=== PATIENT | male | born 1995 | race Two or more races ===

== ENCOUNTER 2017-07-06 14:20 | Emergency (ER) | payer OTHER ==
[2017-07-06 14:42] VITALS: BP 148/84
--- NOTE | 2017-07-06 15:01 | ED Physician Documentation ---
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 denies: Sinus pressure / pain Throat: reports: Sore throat Respiratory: denies: Dyspnea, Cough PD PAST MEDICAL HISTORY - Present Medications Home Medications: Ambulatory Orders Medication Instructions Recorded Confirmed Amoxicillin 500 mg PO TID #30 capsule 07/06/17 - Allergies Allergies/Adverse Reactions: Allergies Allergy/AdvReac Type Severity Reaction Status Date / Time No Known Drug Allergies Allergy Verified 07/06/17 15:04 PD ED PE NORMAL - Vitals Vital signs reviewed: Yes - General General: Alert and oriented X 3, No acute distress - HEENT HEENT: PERRL, EOMI, Other (Tonsils are swollen and inflamed but no exudates, he does have some palatal petechia, he does have right otitis media, left TM is normal. No cervical adenopathy.) - Neck Neck: Supple, no meningeal sign, No bony TTP - Cardiac Cardiac: RRR, No murmur - Respiratory Respiratory: No respiratory distress, Clear bilaterally - Abdomen Abdomen: Non tender - Derm Derm: No rash - Neuro Neuro: Alert and oriented X 3, Normal speech - Psych Psych: Normal mood, Normal affect Results - Vitals Vitals: Vital Signs - 24 hr 07/06/17 14:40 Temperature 36.5 C Heart Rate 77 Respiratory 16 Rate Blood Pressure 148/84 H O2 Saturation 99 Oxygen O2 Source Room air - Labs Labs: Laboratory Tests 07/06/17 15:01 Group A Strep Rapid Negative Departure - Departure Disposition: Home, Self Care Clinical Impression: Right otitis media with effusion Condition: Good Record reviewed to determine appropriate education?: Yes Instructions: ED Otitis Media Acute Adult Prescriptions: Amoxicillin 500 mg PO TID #30 capsule Comments: Your strep test initially is negative, we will also perform a throat culture. Take the antibiotics until done. Wash her hands well and do not kiss your child for a few days until better. Your blood pressure was elevated today on check into the emergency department. This does not mean that you have hypertension, it is a common phenomenon to come to the emergency department and have elevated blood pressure. I recommend that she see your primary care physician within the week to have it rechecked when you are feeling better.
[2017-07-06 15:23] LABS: RAPID STREP SCREEN REAGENT QC YELLOW (YELLOW)
== END 2017-07-06 15:30 | disposition home or self-care (01) ==
LOC: ED 14:20
DX: H66.41 Suppurative otitis media, unspecified, right ear (principal); R03.0 Elevated blood-pressure reading, without diagnosis of hypertension
CPT/HCPCS: 87070; 87430; 99282; 99283

== ENCOUNTER 2018-12-26 05:52 | Emergency (ER) | payer OTHER ==
[2018-12-26 06:01] VITALS: BP 146/82
--- NOTE | 2018-12-26 07:06 | ED Physician Documentation ---
History of Present Illness - Stated complaint Stated Complaint: THROAT PX - Chief complaint Chief Complaint: Heent - History obtained from History obtained from: Patient - History of Present Illness Pain level max: 8 - Additonal information Additional information: Patient is a previously healthy 23-year-old male with approximately 24 hours of bilateral ear pressure and pain without drainage, as well is diffuse sore throat that is causing difficulty swallowing even liquids. Patient believes he may have had a fever, but did not take his temperature. Patient last used ibuprofen last evening with minimal relief. Patient otherwise denies nasal congestion, nasal drainage, vomiting, abdominal pain, cough, difficulty breathing. No improvements or worsening of symptoms with medications or other interventions. Review of Systems Constitutional: denies: Fever Ears: reports: Ear pain. denies: Drainage/discharge PD PAST MEDICAL HISTORY - Past Medical History Past Medical History: No Cardiovascular: None Respiratory: None Neuro: None Endocrine/Autoimmune: None GI: None : None HEENT: None Psych: None Musculoskeletal: None Derm: None - Past Surgical History Past Surgical History: No - Present Medications Home Medications: Ambulatory Orders Medication Instructions Recorded Confirmed Amoxicillin 500 mg PO TID #30 capsule 07/06/17 Penicillin V Potassium 500 mg PO Q6HR #40 tablet 12/26/18 - Allergies Allergies/Adverse Reactions: Allergies Allergy/AdvReac Type Severity Reaction Status Date / Time No Known Drug Allergies Allergy Verified 12/26/18 06:01 - Social History Does the pt smoke?: No Smoking Status: Never smoker Does the pt drink ETOH?: No Does the pt have substance abuse?: No - Immunizations Immunizations are current?: Yes - POLST Patient has POLST: No PD ED PE NORMAL - Vitals Vital signs reviewed: Yes - General General: Alert and oriented X 3, No acute distress, Well developed/nourished - HEENT HEENT: Atraumatic, EOMI, Ears normal, Moist mucous membranes, Other (Erythematous pharynx and soft palate. Bilateral tonsillar swelling and erythema without exudate present. No evidence of uvular deviation, uvulitis, or peritonsillar abscess. No trismus.) - Neck Neck: Supple, no meningeal sign - Cardiac Cardiac: RRR, No murmur, No gallop, No rub - Respiratory Respiratory: No respiratory distress, Clear bilaterally - Abdomen Abdomen: Normal bowel sounds, Soft, Non tender, Non distended - Derm Derm: Normal color, Warm and dry, No rash - Extremities Extremities: No deformity - Neuro Neuro: Alert and oriented X 3 Results - Vitals Vitals: Vital Signs - 24 hr 12/26/18 12/26/18 12/26/18 06:00 06:21 06:51 Temperature 37.7 C H Heart Rate 112 H Respiratory 17 17 16 Rate Blood Pressure 146/82 H O2 Saturation 97 Oxygen O2 Source Room air - Labs Labs: Laboratory Tests 12/26/18 05:50 Group A Strep Rapid Negative PD MEDICAL DECISION MAKING - ED course Complexity details: reviewed results, considered differential, d/w patient ED course: Most concerning for tonsillitis and pharyngitis given patient's complaints and symptomatology and physical exam. Vital signs within normal limits except for slight tachycardia, although do not feel patient is at risk of more significant pathology at this time. Do not feel patient is suffering from ear pathology suc h as otitis media, otitis externa, ruptured TM. Also do not have concerns for nasal issues such as sinusitis. No evidence of uvular deviation, uvulitis, peritonsillar abscess on exam. Patient to receive viscous lidocaine and steroids while in ED. Discussed use of home remedies, as well as antibiotics. Do feel that antibiotics are appropriate given patient's physical exam even though rapid strep test came back negative. Patient does have primary care physician and is comfortable following up with his PCP in the next several days. Also discussed return precautions. Patient voiced understanding and is comfortable with discharge plan. Departure - Departure Disposition: 01 Home, Self Care Clinical Impression: Acute tonsillitis Qualifiers: Pharyngitis/tonsillitis etiology: unspecified etiology Qualified Code(s): J03.90 - Acute tonsillitis, unspecified Condition: Good Instructions: ED Tonsillitis Follow-Up: CONSTANCE AVILES III, MD [Primary Care Provider] - Within 3 Days Prescriptions: Penicillin V Potassium 500 mg PO Q6HR #40 tablet Comments: Please take penicillin as prescribed. Also recommend alternating ibuprofen and Tylenol for pain control. May also try salt water gargles or Listerine. Please follow-up with primary care physician in next 2-3 days and return to ED sooner if explains worsening symptoms such as fever, change in voice, drooling, or other concerns.
[2018-12-26] MEDS ORDERED: LIDOCAINE VISCOUS 2% 15 ML UDC MM STA (07:17)
[2018-12-26] MEDS ORDERED: DEXAMETHASONE 10 MG/ML VIAL PO STA (07:17)
[2018-12-26] MEDS ORDERED: CHERRY SYRUP 10 ML UDC PO ONE (07:41)
== END 2018-12-26 07:42 | disposition home or self-care (01) ==
LOC: ED 05:52
DX: J03.90 Acute tonsillitis, unspecified (principal)
CPT/HCPCS: 87070; 87077; 87430; 99283; A9270

== ENCOUNTER 2019-08-21 10:34 | Emergency (ER) | payer OTHER ==
--- NOTE | 2019-08-21 13:09 | ED Physician Documentation ---
History of Present Illness - Stated complaint Stated Complaint: LT EYE/EAR PX - Chief complaint Chief Complaint: Heent - Additonal information Additional information: This is a 24-year-old male presents with several complaints. He noticed a red spot just below his left orbit 2 days ago, this is some crusting and redness surrounding it which has spread somewhat. He also has a feeling of fluid behind his ears, nasal congestion, has had intermittent cough. He noticed some painful swelling on the left side of his face near. No fever, no shortness of breath, no abdominal pain or vomiting Review of Systems Constitutional: denies: Fever Eyes: denies: Loss of vision Ears: reports: Other (Bilateral ear pressure) Nose: reports: Congestion PD PAST MEDICAL HISTORY - Past Medical History Cardiovascular: None Respiratory: None Neuro: None Endocrine/Autoimmune: None GI: None : None HEENT: None Psych: None Musculoskeletal: None Derm: None - Past Surgical History Past Surgical History: No - Present Medications Home Medications: Ambulatory Orders Medication Instructions Recorded Confirmed Amoxicillin 500 mg PO TID #30 capsule 07/06/17 Penicillin V Potassium 500 mg PO Q6HR #40 tablet 12/26/18 Cephalexin [Keflex] 500 mg PO Q6H #28 capsule 08/21/19 Fluticasone [Flonase] 1 sprays NATASHA BID PRN #1 bottle 08/21/19 Mupirocin 1 applic TP BID 10 Days #1 tube 08/21/19 diphenhydrAMINE [Benadryl] 25 mg PO Q4-6H PRN #20 capsule 08/21/19 - Allergies Allergies/Adverse Reactions: Allergies Allergy/AdvReac Type Severity Reaction Status Date / Time No Known Drug Allergies Allergy Verified 08/21/19 10:50 - Social History Does the pt smoke?: No Smoking Status: Never smoker Does the pt drink ETOH?: No Does the pt have substance abuse?: No - Immunizations Immunizations are current?: Yes - POLST Patient has POLST: No PD ED PE NORMAL - Vitals Vital signs reviewed: Yes - General General: Alert and oriented X 3, No acute distress - HEENT HEENT: PERRL, Other (Serous effusion in the left ear, no bulging or purulence behind either eardrum. Just inferior to the left orbit there is a small amount of crusting and erythema, this does not extend to the eyelid or the eyes themselves appear normal. Patient is full movements of his eyes without pain. There is a rubbery and mobile slightly tender and mildly enlarged 1.5 cm x 1.5 cm lymph node just anterior to the left ear. There is no fluctuance, no overlying skin changes.) - Neck Neck: Supple, no meningeal sign - Cardiac Cardiac: RRR, No murmur - Respiratory Respiratory: No respiratory distress - Abdomen Abdomen: Normal bowel sounds, Soft, Non tender, Non distended - Derm Derm: Warm and dry - Extremities Extremities: No deformity - Neuro Neuro: Alert and oriented X 3 - Psych Psych: Normal mood, Normal affect Results - Vitals Vitals: Oxygen O2 Source Room air PD MEDICAL DECISION MAKING - ED course Complexity details: considered differential (URI, otitis media, serous effusion, lymphadenopathy, eustachian tube dysfunction, preseptal cellulitis, facial cellulitis.) ED course: Pt is non-toxic, appears to have a mild facial cellulitis without signs of orbital cellulitis. He also has URI symptoms with serous effusion, but no otitis media. I prescribed decongestants as well as abx for the cellulitis. Return precautions and PCP follow up discussed and he was discharged home. Departure - Departure Disposition: 01 Home, Self Care Clinical Impression: Preseptal cellulitis, Eustachian tube dysfunction Condition: Good Instructions: ED Cellulitis Facial Follow-Up: CONSTANCE AVILES III, MD [Primary Care Provider] - Within 1 week Prescriptions: Cephalexin [Keflex] 500 mg PO Q6H #28 capsule diphenhydrAMINE [Benadryl] 25 mg PO Q4-6H PRN #20 capsule PRN Reason: Itching Fluticasone [Flonase] 1 sprays NATASHA BID PRN #1 bottle PRN Reason: Nasal Congestion Mupirocin 1 applic TP BID 10 Days #1 tube Comments: You appear to have a skin infection of your face, use the mupirocin antibiotic ointment and the antibiotic pills for this. You also have some fluid behind your eardrums, without signs of infection. Try the Benadryl and the Flonase spray for this. Your symptoms will likely resolve as your cold improves. If you are having worsening symptoms or if the redness/rash is spreading or you are having pain with eye movements, or other concerning symptoms return to the emergency department. Discharge Date/Time: 08/21/19 13:50
[2019-08-21 13:50] VITALS: BP 136/79
== END 2019-08-21 13:50 | disposition home or self-care (01) ==
LOC: ED 10:34
DX: L03.213 Periorbital cellulitis (principal); H69.83 Other specified disorders of Eustachian tube, bilateral
CPT/HCPCS: 99282; 99283

== ENCOUNTER 2020-05-02 15:48 | Emergency (ER) | payer OTHER ==
[2020-05-02] MEDS ORDERED: MAG HYDROX/AL HYDROX/SIMETH 30 ML UDC PO STA (17:31)
[2020-05-02] MEDS ORDERED: LIDOCAINE VISCOUS 2% 15 ML UDC MM STA (17:31)
--- NOTE | 2020-05-02 17:32 | ED Physician Documentation ---
PD HPI ABD PAIN - Stated complaint Stated Complaint: ABD PX - Chief complaint Chief Complaint: Abd Pain - History obtained from History obtained from: Patient - History of Present Illness Timing - onset: How many days ago (2) Timing - duration: Days (2) Timing - details: Gradual onset, Still present Quality: Sharp, Pain Location: Epigastric Improved by: Laying still, Vomiting Worsened by: Moving, Position, Palpation Associated symptoms: Nausea, Vomiting Similar symptoms before: Has not had sx before Recently seen: Not recently seen - Additional information Additional information: 24-year-old male who has recently undergone aKeto diet for 3 weeks when off of his diet and had some alcohol and breaded shrimp 2 days ago and yesterday he began to have abdominal pain and nausea. Review of Systems Constitutional: denies: Fever Eyes: denies: Decreased vision Ears: denies: Ear pain Nose: denies: Rhinorrhea / runny nose, Congestion Throat: denies: Sore throat Cardiac: denies: Palpitations, Pedal edema Respiratory: denies: Dyspnea, Cough GI: reports: Abdominal Pain, Nausea, Vomiting. denies: Constipation, Diarrhea : denies: Dysuria, Frequency PD PAST MEDICAL HISTORY - Past Medical History Cardiovascular: None Respiratory: None Neuro: None Endocrine/Autoimmune: None GI: None : None HEENT: None Psych: None Musculoskeletal: None Derm: None - Past Surgical History Past Surgical History: No - Present Medications Home Medications: Ambulatory Orders Medication Instructions Recorded Confirmed Amoxicillin 500 mg PO TID #30 capsule 07/06/17 Penicillin V Potassium 500 mg PO Q6HR #40 tablet 12/26/18 Cephalexin [Keflex] 500 mg PO Q6H #28 capsule 08/21/19 Fluticasone [Flonase] 1 sprays NATASHA BID PRN #1 bottle 08/21/19 Mupirocin 1 applic TP BID 10 Days #1 tube 08/21/19 diphenhydrAMINE [Benadryl] 25 mg PO Q4-6H PRN #20 capsule 08/21/19 - Allergies Allergies/Adverse Reactions: Allergies Allergy/AdvReac Type Severity Reaction Status Date / Time No Known Drug Allergies Allergy Verified 05/02/20 15:50 - Social History Does the pt smoke?: No Smoking Status: Never smoker Does the pt drink ETOH?: No Does the pt have substance abuse?: No - Immunizations Immunizations are current?: Yes - POLST Patient has POLST: No PD ED PE NORMAL - Vitals Vital signs reviewed: Yes (hypertensive ) - General General: Alert and oriented X 3, No acute distress, Well developed/nourished - HEENT HEENT: Atraumatic, PERRL, EOMI - Neck Neck: Supple, no meningeal sign, No bony TTP - Cardiac Cardiac: RRR, No murmur - Respiratory Respiratory: No respiratory distress, Clear bilaterally - Abdomen Abdomen: Soft, Other (epigastric tenderness to palpation as well as RUQ tenderness without garding ) - Back Back: No CVA TTP, No spinal TTP - Derm Derm: Normal color, Warm and dry, No rash - Extremities Extremities: No deformity, No edema - Neuro Neuro: Alert and oriented X 3, adult psychiatrist 2-12 intact, No motor deficit, No sensory deficit, Normal speech Eye Opening: Spontaneous Motor: Obeys Commands Verbal: Oriented GCS Score: 15 - Psych Psych: Normal mood, Normal affect Results - Vitals Vitals: Vital Signs - 24 hr 05/02/20 05/02/20 15:50 17:05 Temperature 36.6 C Heart Rate 76 88 Respiratory 14 18 Rate Blood Pressure 150/81 H 139/78 H O2 Saturation 98 98 Oxygen O2 Source Room air - Labs Labs: Laboratory Tests 05/02/20 05/02/20 19:02 19:02 WBC 10.1 RBC 5.33 Hgb 16.0 Hct 47.0 MCV 88.2 MCH 30.0 MCHC 34.0 RDW 12.8 Plt Count 305 MPV 9.8 Neut # (Auto) 7.8 H Lymph # (Auto) 1.1 L Tucker # (Auto) 0.9 Eos # (Auto) 0.2 Baso # (Auto) 0.1 Absolute Nucleated RBC 0.00 Nucleated RBC % 0.0 Sodium 139 Potassium 4.0 Chloride 104 Carbon Dioxide 27 Anion Gap 8.0 BUN 16 Creatinine 1.1 Estimated GFR (MDRD) 84 L Glucose 101 H Calcium 9.3 Total Bilirubin 1.1 H AST 28 ALT 31 Alkaline Phosphatase 51 Total Protein 7.9 Albumin 4.7 Globulin 3.2 Albumin/Globulin Ratio 1.5 Lipase 25 PD MEDICAL DECISION MAKING - ED course Complexity details: reviewed results, re-evaluated patient, considered differential, d/w patient ED course: 24-year-old male with acute epigastric abdominal pain for 2 days has no relief with use of viscous lidocaine and Mylanta. At shift change his care is turned over to Dr. Shah with a CT abdomen and pelvis pending.
[2020-05-02] MEDS ORDERED: SODIUM CHLORIDE 0.9% 1,000 ML IV STA (18:47)
[2020-05-02] MEDS ORDERED: ONDANSETRON 4 MG/2 ML VIAL IVP STA ×2 (18:47→21:24)
[2020-05-02] MEDS ORDERED: KETOROLAC 30 MG/ML VIAL IVP STA (18:47)
[2020-05-02 19:09] LABS: BASOPHILS # (AUTO) 0.1 10^3/uL (0.0-0.1); BASOPHILS % (AUTO) 0.5 %; EOSINOPHILS # (AUTO) 0.2 10^3/uL (0.0-0.7); EOSINOPHILS % (AUTO) 1.8 %; LYMPHOCYTES # (AUTO) 1.1 10^3/uL (1.5-3.5); LYMPHOCYTES % (AUTO) 11.3 %; MEAN CORPUSCULAR VOLUME 88.2 fL (80.0-94.0); MEAN PLATELET VOLUME 9.8 fL (7.4-11.4); MONOCYTES # (AUTO) 0.9 10^3/uL (0.0-1.0); MONOCYTES % (AUTO) 8.6 %; NEUTROPHILS # (AUTO) 7.8 10^3/uL (1.5-6.6); NEUTROPHILS % (AUTO) 77.4 %; PLT - PLATELET COUNT 305 10^3/uL (130-450); RED BLOOD COUNT 5.33 10^6/uL (4.70-6.10); RED CELL DISTRIBUTION WIDTH 12.8 % (12.0-15.0); WHITE BLOOD COUNT 10.1 x10^3/uL (4.8-10.8)
[2020-05-02 19:26] LABS: ALBUMIN 4.7 g/dL (3.2-5.5); ALBUMIN/GLOBULIN RATIO 1.5 (1.0-2.2); BILIRUBIN,TOTAL 1.1 mg/dL (0.2-1.0); CALCIUM 9.3 mg/dL (8.5-10.3); CREATININE 1.1 mg/dL (0.6-1.2); TOTAL PROTEIN 7.9 g/dL (6.7-8.2)
[2020-05-02] MEDS ORDERED: IOVERSOL 320 100 ML VIAL IVP ONE ×2 (19:57→20:57)
--- NOTE | 2020-05-02 20:34 | CT Report ---
PROCEDURE: Abdomen/Pelvis W INDICATIONS: severe epigastric pain CONTRAST: IV CONTRAST: Optiray 320 ml: 100 PO CONTRAST: *NO PO CONTRAST TECHNIQUE: After the administration of oral and intravenous contrast, 5 mm thick sections acquired from the diap hragms to the symphysis. 5 mm thick coronal and sagittal reformats were acquired. For radiation dos e reduction, the following was used: automated exposure control, adjustment of mA and/or kV accordin g to patient size. COMPARISON: None. FINDINGS: Image quality: Excellent. ABDOMEN: Lung bases: Lung bases are clear. Heart size is normal. Solid organs: Liver and spleen are normal in size and enhancement. Gallbladder is unremarkable Josue iary system is non dilated. Pancreas enhances normally. No adrenal nodules. Kidneys demonstrate no rmal size and enhancement, without hydronephrosis. Peritoneum and bowel: Bowel loops demonstrate normal wall thickness and caliber. No free fluid or a ir. Scattered colonic diverticula are present. No inflammatory change. There is prominent thickening of the distal gastric wall at the level of the pylorus. Nodes and vessels: No retroperitoneal or mesenteric adenopathy by size criteria. Aorta and inferior vena cava are normal in size. Miscellaneous: No ventral hernias. Mild hiatal hernia is present. Slight appearance of distal esoph ageal thickening is present. PELVIS: Genitourinary: Bladder wall thickness is normal. Miscellaneous: No inguinal hernias or adenopathy. Bones: No suspicious bony lesions. No vertebral body compression fractures. IMPRESSION: 1. Prominent distal gastric wall thickening which can represent gastritis. However, recommend interva l follow-up to document resolution and exclude presence of underlying mass lesion within this region. Additionally, endoscopy may be obtained. 2. Small hiatal hernia with minimal appearance of distal esophageal thickening. The latter could be r epresentative of incomplete distention. However, in appropriate clinical circumstance, esophagitis ca nnot be excluded. Reviewed by: Emilie Almodovar MD on 05/02/2020 8:33 PM PDT Approved by: Emilie Almodovar MD on 05/02/2020 8:33 PM PDT Station ID: [id number]
[2020-05-02] MEDS ORDERED: SUCRALFATE 1 GM/10 ML UDC PO STA (21:24)
[2020-05-02] MEDS ORDERED: PANTOPRAZOLE 40 MG VIAL IVP STA (21:24)
[2020-05-02 21:36] VITALS: BP 105/63
--- NOTE | 2020-05-03 04:21 | ED Physician Documentation ---
ED Addendum - Addendum Addendum: 05/03/20 04:17 Received sign out from Dr. Ngo pending CT results. CT results reviewed and d/w patient; findings s/o HH with esophagitis as well as gastritis but need for follow up to document resolution and exclude presence of underlying mass lesion was discussed with patient and emphasized. He is given sucralfate PO and IV zofran and protonix prior to discharge. DISPOSITION: 01 Home, Self Care Clinical Impression: esophagitis, gastritis Condition: good
== END 2020-05-02 21:50 | disposition home or self-care (01) ==
LOC: ED 15:48
DX: K29.70 Gastritis, unspecified, without bleeding (principal); K20.9 Esophagitis, unspecified; K44.9 Diaphragmatic hernia without obstruction or gangrene
CPT/HCPCS: 36415; 74177; 80053; 83690; 85025; 96361; 96374; 96375; 99284; A9270; Q9967

== ENCOUNTER 2020-05-05 07:35 | Emergency (ER) | payer OTHER ==
[2020-05-05 07:48] VITALS: BP 127/99
--- NOTE | 2020-05-05 07:50 | ED Physician Documentation ---
PD HPI ABD PAIN - Stated complaint Stated Complaint: ABD PX - Chief complaint Chief Complaint: General - History obtained from History obtained from: Patient - History of Present Illness Timing - onset: How many days ago (4) Timing - duration: Days (4) Timing - details: Gradual onset, Still present Quality: Aching, Pain Location: Epigastric Radiation: Chest Improved by: Meds Worsened by: Eating Associated symptoms: Nausea. No: Fever, Vomiting, Diarrhea Similar symptoms before: Has not had sx before Recently seen: Emergency Dept (Dx with gastritis and esophagitis by symptoms and findings on CT 3 days ago. Given work note for 2 days. Pt mildly better but still hurting and nauseated. Feeling unable to work. 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 denies: Vomiting, Diarrhea, Bloody / black stool Neurologic: denies: Generalized weakness, Near syncope PD PAST MEDICAL HISTORY - Past Medical History Cardiovascular: None Respiratory: None Neuro: None Endocrine/Autoimmune: None GI: None : None HEENT: None Psych: None Musculoskeletal: None Derm: None - Past Surgical History Past Surgical History: No - Present Medications Home Medications: Ambulatory Orders Medication Instructions Recorded Confirmed Esomeprazole Magnesium 20 mg PO DAILY #14 capsule. 05/02/20 Ondansetron Odt [Zofran] 4 mg TL Q6H PRN #10 tablet 05/02/20 Sucralfate 1 gm PO QID #30 tablet 05/02/20 - Allergies Allergies/Adverse Reactions: Allergies Allergy/AdvReac Type Severity Reaction Status Date / Time No Known Drug Allergies Allergy Verified 05/02/20 15:50 - Social History Does the pt smoke?: No Smoking Status: Never smoker Does the pt drink ETOH?: No Does the pt have substance abuse?: No - Immunizations Immunizations are current?: Yes - POLST Patient has POLST: No PD ED PE NORMAL - Vitals Vital signs reviewed: Yes - General General: Alert and oriented X 3, No acute distress, Well developed/nourished - HEENT HEENT: Pharynx benign - Neck Neck: Supple, no meningeal sign, No adenopathy - Cardiac Cardiac: RRR, No murmur - Respiratory Respiratory: Clear bilaterally - Abdomen Abdomen: Normal bowel sounds, Soft, Non distended, No organomegaly, Other (mild epigastric tenderness without guarding nor percussion tenderness. ) Results - Vitals Vitals: Vital Signs - 24 hr 05/05/20 07:41 Temperature 36.2 C L Heart Rate 70 Blood Pressure 127/99 H O2 Saturation 100 Oxygen O2 Source Room air PD MEDICAL DECISION MAKING - ED course Complexity details: reviewed old records, considered differential (had diagnosis on prior ER visit and CT; had work note until today, but still hurting enough to not be able to work. WIll give work note. Has GI appt next Friday. ), d/w patient Departure - Departure Disposition: Home, Self Care Clinical Impression: Esophagitis Gastritis Qualifiers: Gastritis type: unspecified gastritis Chronicity: acute Gastritis bleeding: without bleeding Qualified Code(s): K29.00 - Acute gastritis without bleeding Condition: Stable Record reviewed to determine appropriate education?: Yes Instructions: ED Gastritis Follow-Up: NATASHA Summers [Provider Group] Comments: Continue your current medications. Add Tylenol 650 mg every 4 hours if needed for pain. This is okay to use in the setting of gastritis. Off work another 5 days until hopefully your GI follow-up. Return if worsening symptoms. Forms: Activity restrictions Discharge Date/Time: 05/05/20 08:16
[2020-05-05] MEDS ORDERED: ACETAMINOPHEN 325 MG TABLET PO STA (08:03)
== END 2020-05-05 08:16 | disposition home or self-care (01) ==
LOC: ED 07:35
DX: K20.9 Esophagitis, unspecified (principal); K29.70 Gastritis, unspecified, without bleeding
CPT/HCPCS: 99282; 99284; A9270